=== PATIENT | female | born 1980 | race Caucasian/White ===

== ENCOUNTER 2018-08-29 05:29 | Day surgery (SDC) | payer OTHER ==
[2018-08-29] VITALS (14 sets, daily range): BP systolic 97–114; BP diastolic 46–70; PULSE 54–75; RESP 12–21; Ht 167.6 cm; Wt 84.2 kg
[~2018-08-29] VITALS: Ht 167.6 cm; Wt 84.2 kg
[2018-08-29] MEDS ORDERED: GEMF600T8 PO (07:07)
--- NOTE | 2018-08-29 07:21 | PREOPHP ---
DATE OF ADMISSION: 08/29/2018 This patient is coming on ____ for a surgical procedure. HISTORY OF PRESENT ILLNESS: This is a 37-year-old female, 1, para 1. This patient was refer red to me due to ultrasound results for a polyp excision. She has been having periods that are very irregular, without pain, for 5 to 6 days with dysmenorrhea for 1 or 2 days. The patient had a C-sect ion 12 years ago due to a transverse lie. REVIEW OF SYSTEMS: Negative for cardiovascular, lung disease, GI disease, endocrine disease, neurolo gical, orthopedic disease. ALLERGIES: SHE IS NOT ALLERGIC TO ANY MEDICATIONS. SOCIAL HISTORY: She does not drink or smoke. No history of drugs. FAMILY HISTORY: For high blood pressure, breast cancer and diabetes. The patient is using only condoms for control. An ultrasound done early last year showed a 2 cm mass that was consistent with endometrial polyp. Th e uterus was otherwise normal and she had a small amount of pelvic free fluid and both ovaries were a lso normal. Pap smear was normal. The patient is undergoing a fractional D and C, hysteroscopy, and endometrial polyp excision, possibly using the hysteroscopic instruments for a polyp excision. PAST HISTORY: As I said is a . ALLERGIES: SHE DOES NOT HAVE ANY ALLERGIES. MEDICATION: Statins. FAMILY HISTORY: For mother and grandmother with breast cancer and hypertension. PHYSICAL EXAMINATION: GENERAL APPEARANCE: Good. VITAL SIGNS: Blood pressure 130/90. She weighs 215 pounds. She is 5 feet 6 inches. HEAD AND NECK: Normal. BREASTS: Soft, nontender, no masses. CHEST: Clear. HEART: Normal sinus rhythm. LUNGS: Clear. ABDOMEN: Soft, nontender, no masses. PELVIC: External genitalia is normal. Vagina is clean. Cervix is healthy. Uterus retroverted, fle xed. Adnexa are negative. RECTAL: Examination is normal. DIAGNOSES: 1. Endometrial polyp. 2. Family history of breast cancer. PLAN: She is undergoing a D and C, hysteroscopy, endometrial polyp excision. She has been advised o f the possible risks and possible complication of the procedure with her alternatives and options. Rayne briceno information was provided. She had no more questions and agreed to go ahead with the procedure with full understanding and no more questions. Dictated By: JONATHON STEARNS/NTS Conf#: [id number] DID#: [id number]
--- NOTE | 2018-08-29 07:34 | PREAC ---
Date/Time of Note Date/Time of Note DATE: 08/29/18 TIME: 07:30 Anesthesia Eval and Record Evaluation Time Pre-Procedure Interview DATE: 08/29/18 TIME: 07:30 Age 38 Sex female NPO: 8 hrs Preoperative diagnosis Endometrial Polyp Planned procedure Hysteroscopy and D & C Past Medical History Past Medical History: Includes Cardio: Dyslipidemia Surgery & Anesthesia Issues No known issue Meds Anticoagulation: No Beta Stevo within 24 hr: No Reason Beta Stevo not given: Pt. not on B-Stevo Reported Medications Gemfibrozil* (Gemfibrozil*) 600 Mg Tablet, 600 MG PO BID, TAB 08/29/18 Meds reviewed: Yes Allergies Coded Allergies: No Known Allergy (Unverified , 08/29/18) Allergies Reviewed: Yes Labs/Studies Labs Reviewed: Reviewed by anesthesiologist test: Negative Studies: ECG (NSR), CXR (WNL) Pre-procedure Exam Last vitals Vital Signs Date Temp Pulse Resp B/P (MAP) Pulse Ox O2 O2 Flow FiO2 Time Delivery Rate 08/29/18 98.5 66 18 110/70 100 Room Air 06:57 (83) Airway: Adequate mouth opening, Adequate thyromental dist Mallampati: Mallampati II Teeth: Normal Lung: Normal Heart: Normal ASA Physical Status ASA physical status: 2 Emergency: None Planned Anesthetic General/MAC: LMA Planned Pain Management Parenteral pain med Pre-operative Attestations Prior to commencing anesthesia and surgery, the patient was re-evaluated, there was verification of: *The patient's identity *The results of appropriate recent lab work and preoperative vital signs *The above evaluation not changing prior to induction *Anesthetic plan, risk benefits, alternative and complications discussed with pa tient/family; questions answered; patient/family understands, accepts and wishes to proceed. KRISTINE GOLDEN MD Aug 29, 2018 07:34
[2018-08-29] MEDS ORDERED: MIDAZOLAM 1 MG/ML 2 ML INJ ONE (07:44)
[2018-08-29] MEDS ORDERED: PROPOFOL 20 ML ONE (07:44)
[2018-08-29] MEDS ORDERED: CEFAZOLIN 1 GM INJ ONE (07:44)
[2018-08-29] MEDS ORDERED: FENTAnyl 50 MCG/ML VIAL ONE (07:44)
--- NOTE | 2018-08-29 07:46 | HPN ---
Date/Time of Note Date/Time of Note DATE: 08/29/18 TIME: 07:45 Interval H&P Admission Note Pt. seen H&P reviewed: No system changes JONATHON MUNOZ MD Aug 29, 2018 07:46
[2018-08-29] MEDS ORDERED: ONDANSETRON 4 MG INJ ONE (07:54)
[2018-08-29] MEDS ORDERED: KETOROLAC 30 MG INJ ONE (07:54)
[2018-08-29] MEDS ORDERED: METOCLOPRAMIDE 10 MG INJ ONE (07:54)
[2018-08-29] MEDS ORDERED: DEXAMETHASONE 4 MG/ML 5 ML INJ ONE (07:54)
[2018-08-29] MEDS ORDERED: MEPERIDINE 25 MG INJ IV PRN (08:00)
[2018-08-29] MEDS ORDERED: EPHEDrine SULFATE 50 MG/5 ML SYG IV PRN (08:00)
[2018-08-29] MEDS ORDERED: METOCLOPRAMIDE 10 MG INJ IV PRN (08:00)
[2018-08-29] MEDS ORDERED: DIPHENHYDRAMINE 50 MG INJ IV PRN (08:00)
[2018-08-29] MEDS ORDERED: LABETALOL HCL 20MG INJ IV PRN (08:00)
[2018-08-29] MEDS ORDERED: OXYCODONE/ACETAMINOPHEN (5/325) TAB PO PRN (08:00)
[2018-08-29] MEDS ORDERED: FENTAnyl 50 MCG/ML VIAL IV PRN ×3 (08:00)
[2018-08-29] MEDS ORDERED: HYDROmorphONE 1 MG/5 ML IV SYRINGE IV PRN ×3 (08:00)
[2018-08-29] MEDS ORDERED: ONDANSETRON 4 MG INJ IV PRN (08:00)
--- NOTE | 2018-08-29 08:49 | PAC ---
Date/Time of Note Date/Time of Note DATE: 08/29/18 TIME: 08:48 Post-Anesthesia Notes Post-Anesthesia Note Last documented vital signs Vital Signs Date Temp Pulse Resp B/P (MAP) Pulse Ox O2 O2 Flow FiO2 Time Delivery Rate 08/29/18 99.7 66 18 110/70 100 Room Air 08:57 (83) Activity: WNL Respiratory function: WNL Cardiovascular function: WNL Mental status: Baseline Pain reasonably controlled: Yes Hydration appropriate: Yes Nausea/Vomiting absent: Yes KRISTINE GOLDEN MD Aug 29, 2018 08:49
--- NOTE | 2018-08-29 08:57 | PD.PPDC ---
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
--- NOTE | 2018-08-29 09:01 | SIPON ---
Date/Time of Note Date/Time of Note DATE: 08/29/18 TIME: 08:59 Operative Report Preoperative Diagnosis Irregular uterine bleeding Endometrial polyps Postoperative Diagnosis Large fibroid uterus, endometrial polyps. Endometrial hyperplasia Submucosal fibroids Operation/Procedure Performed Fractional D&C hysteroscopy Endometrial polyp excision Surgeon see signature line recreational assistant None Anesthesia: general Estimated blood loss: minimal Transfusion Required none Specimen Endometrial contents Grafts/Implants none Complications none JONATHON MUNOZ MD Aug 29, 2018 09:01
--- NOTE | 2018-08-29 09:19 | OPR ---
DATE OF OPERATION: 08/29/2018 PREOPERATIVE DIAGNOSES: 1. Irregular uterine bleeding. 2. Endometrial polyps. POSTOPERATIVE DIAGNOSES: 1. Large fibroid uterus. 2. Endometrial polyps. 3. Endometrial hyperplasia. 4. Submucosal fibroids. PROCEDURES PERFORMED: Fractional dilation and curettage hysteroscopy, endometrial polyp excisions. ANESTHESIA: General. COMPLICATIONS: No complications. DESCRIPTION OF PROCEDURE: The patient was given general anesthesia, placed in the supine position. The perineal and vaginal area were prepped and draped. Confirmatory examination under anesthesia rev ealed that the patient had a retroverted uterus that was enlarged with the irregularities in the post erior wall of the uterus about 11 weeks size. The left adnexa was full and with a possible adnexal m ass. The right ovary was nonpalpable. A vaginal speculum was applied. The cervix was held. Endoce rvical curettage was done. The uterus was sounded to a depth of 11 cm and dilated to a 7 mm. The hy steroscope was placed and the visualization of the area revealed that there was marked endometrial hy perplasia with polyps and there were small multiple polyps and areas with possible submucosal fibroid s. The procedure was finished since the hysteroscope machine was not working well with curettage and endometrial contents evacuation with polyp excisions with polyp forceps. The curettage of the cavit y was done thoroughly with abundant tissue that was sent for frozen section and later on informed as benign. The patient tolerated the procedure well and left the operation room awake and stable. Spon ge counts and instrument counts were correct. Intravenous antibiotics were given for prophylaxis. B lood loss was minimal and the urine was clear at the end of the procedure. The pathology final resul t will be inspected. The patient left the operation room awake and stable. Dictated By: JONATHON STEARNS/NTS Conf#: [id number] DID#: [id number] CC: JONATHON MUNOZ MD;*EndCC*
--- NOTE | 2018-08-29 10:45 | SIPON ---
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 YOUNGBLOOD Anesthesia: spinal Estimated blood loss: other Transfusion Required none Specimen Placenta Grafts/Implants none Complications none JONATHON MUNOZ MD Aug 29, 2018 10:45
--- NOTE | 2018-08-29 12:04 | RADRPT ---
Vent Rate: 51 bpm RR Interval: 0 msec DC Interval: 172 msec QRS Duration: 98 msec QT Interval: 456 msec QTC Interval: 420 msec P-R-T [place]: 48 - 30 - 41 degrees Sinus bradycardia Otherwise normal ECG Electronically Signed By: El Hernandez [id number]
== END 2018-08-29 10:24 | disposition home or self-care (01) ==
LOC: SDS 05:29
PROVIDERS: ATTEND Obstetrics & Gynecology
DX: D25.9 Leiomyoma of uterus, unspecified (principal); D25.0 Submucous leiomyoma of uterus; N85.00 Endometrial hyperplasia, unspecified
CPT/HCPCS: 58558; 88305; 88331; 93005; J0690; J1100; J1885; J2250; J2405; J2765; J3010; Z7512; Z7610